=== PATIENT | male | born 1990 | race Caucasian/White ===

== ENCOUNTER 2018-12-19 06:19 | Inpatient (IN) | payer BC ==
--- NOTE | 2018-12-19 06:53 | ED ---
Psych HPI - General Chief Complaint: Psychiatric Symptoms Stated Complaint: mental health Time Seen by Provider: 12/19/18 06:21 Source: patient Mode of arrival: ambulatory - History of Present Illness Initial Comments: 28-year-old male with past medical history of HTN, currently not being treated and family history of bipolar and depression presenting today for chief complaint of anxiety, depression suicidal thoughts and increased anger. Patient states that for as long as he can remember he goes through waves of anger increased emotions for about a month he states it then subsides for a few months ago comes back. He states that he can no longer take this cycle. He states that this time he exploded he punched a wall last night. He states that he this was a result of an argument with his he states it was out of proportion reaction and wants to get help. Patient is tearful during history taking. He states he has not been able to sleep. Patient states he has a few small abrasions of the right hand and some swelling, but "its fine" denies decreased ROM or strength. Patient states that he did have a plan of driving into something to end his life at one point yesterday. Patient states he needs help. Remaining ROS (-) Denies homicidal ideations. - Related Data Allergies Allergy/AdvReac Type Severity Reaction Status Date / Time No Known Allergies Allergy Verified 12/19/18 06:29 Review of Systems ROS Statement: Those systems with pertinent positive or pertinent negative responses have been documented in the HPI. ROS Other: All systems not noted in ROS Statement are negative. Past Medical History Past Medical History: No Reported History History of Any Multi-Drug Resistant Organisms: None Reported Past Surgical History: No Surgical Hx Reported Past Psychological History: Anxiety, Depression Smoking Status: Never smoker Past Alcohol Use History: Occasional Past Drug Use History: None Reported General Exam - General Exam Comments Initial Comments: General: The patient is awake and aler Eye: +3 mm pupils are equal, round and reactive to light, extra-ocular movements are intact. No nystagmus. There is normal conjunctiva bilaterally. No signs of icterus. Ears, nose, mouth and throat: There are moist mucous membranes and no oral lesions. Neck: The neck is supple, there is no tenderness or JVD. Cardiovascular: There is a regular rate and rhythm. No murmur, rub or gallop is appreciated. Respiratory: Lungs are clear to auscultation, respirations are non-labored, breath sounds are equal. No wheezes, stridor, rales, or rhonchi. Gastrointestinal: Soft, non-distended, non-tender abdomen without masses or organomegaly noted. There is no rebound or guarding present. Musculoskeletal: Upon section of the hands bilaterally a few small abrasions near the MTP joint. Of multiple digits. There is soft tissue swelling and mild ecchymosis. Patient is able to fully range the MTP DIP and PIP joints extend and flex at the wrist. No evidence of wrist drop. No limitations in strength or range of motion however patient states there is discomfort. Patient is able to make the okay fingers crossed thumbs up and oppose the small digit of the thumb. Full sensation both proximal distal to injury site Refill less than 3 seconds Radial pulses equal bilaterally 2+. Neurological: A&O x 3. CN II-XII intact grossly, There are no obvious motor or sensory deficits. Coordination appears grossly intact. Speech is normal. Skin: Skin is warm and dry and no rashes or lesions are noted. Psychiatric: Cooperative, tearful, makes appropriate eye contact Course Vital Signs 12/19/18 06:25 Temperature 97.9 F Pulse Rate 85 Respiratory 18 Rate Blood Pressure 152/104 O2 Sat by Pulse 96 Oximetry Medical Decision Making - Medical Decision Making 28yo male presenting for anger, depression, suicidal thoughts. Tearful on exam, cooperative. Punched wall yesterday, xr (-) for fracture of affected site. Neurovascular intact. No limitations in range of motion at the MTP DIP or PIP joints with full strength. Patient is no other complaints. Medically cleared for psychiatric evaluation. EPS recommendation inpatient therapy. Patient signed in voluntarily. Disposition Clinical Impression: Suicidal ideation, Depression Disposition: TRANSFER TO PSYCH HOSP/UNIT Condition: Serious Is patient prescribed a controlled substance at d/c from ED?: No Referrals: None,Stated [Primary Care Provider] - 1-2 days Time of Disposition: 09:59
--- NOTE | 2018-12-19 07:11 | XR ---
EXAMINATION TYPE: XR hand complete RT DATE OF EXAM: 12/19/2018 CLINICAL HISTORY: Right hand pain TECHNIQUE: Frontal, lateral and oblique images of the right hand are obtained. COMPARISON: None. FINDINGS: There is no acute fracture/dislocation evident in the right hand. The joint spaces in the right hand appear within normal limits. The overlying soft tissue appears unremarkable. IMPRESSION: There is no acute fracture or dislocation in the right hand.
[2018-12-19] MEDS ORDERED: MAG HYDROX/AL HYDROX/SIMETH 30 ML CUP PO PRN (14:22)
[2018-12-19] MEDS ORDERED: MAGNESIUM HYDROXIDE 2,400 MG/10 ML CUP PO PRN (14:22)
[2018-12-19] MEDS ORDERED: LORazepam 1 MG TAB PO PRN (14:22)
[2018-12-19] MEDS ORDERED: ACETAMINOPHEN TAB 325 MG TAB PO PRN (14:22)
[2018-12-19] MEDS ORDERED: LORazepam 2 MG/ML INJ IM PRN (14:25)
--- NOTE | 2018-12-19 16:18 | P.HP ---
Psychiatric H&P - . 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 HPI: Patient presented to the hospital with complaints of increasing depression, anger outbursts and most recently a suicidal ideations with a plan to crash his car. Patient states that he has been feeling irritable, sad and hopeless for years now which has been gradually increasing. He states that he suffers from waves of "depression". Patient claims that he feels worried and scared that his can explode on someone and present to the hospital after he punched a wall last night was unprovoked. Patient sustained a significant hand injury however no fracture was determined on x-ray. Patient states that he is worried about his children seeing him like this and wants help. 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 At this time he claims that he does not have specific suicidal ideations intent or plan and does not have any homicidal ideations intent or plan. Denies any auditory or visual hallucinations. Patient denies the use of any other recreational drugs however claims that he does eat an edible of THC twice a week. He claims that his sleep has been poor however has fair appetite. PAST PSYCHIATRIC HISTORY: Denies any previous psychiatric contacts. He denies any previous psych hospitalizations. Denies being on any psychiatric medications in the past. Denies any suicide attempts in the past. PMH: Denies ALLERGIES: [NKDA] CHEMICAL DEPENDENCY HISTORY: Edible of THC 2 times a week. He denies any other recreational drug use including alcohol and nicotine. FAMILY PSYCHIATRIC/SUBSTANCE USE HISTORY: Claims his mother suffered from depression and his father has an unknown mental illness. 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 He completed high school however did not go to college. MENTAL STATUS EXAM: General Appearance: [Patient appears to be stated age is alert, is cooperative and redirectable. Patient has fair hygiene and grooming. Behavior: [Patient is appears to be anxious and irritable. Speech: Patient's speech is fluent and nonpressured. Mood/Affect: Patient reports their mood is sad, affect is congruent and constricted Suicidality/Homicidality: Patient denies having any suicidal or homicidal ideation intent or plan. Perceptions: Patient denies any auditory or visual hallucinations. Though content/process: There is no evidence of any delusional thought content and thought process is linear and goal-directed. Memory and concentration: AOX3, grossly intact for the purposes of this session. Can spell "WORLD" backwards Judgment and insight: Poor STRENGTHS/WEAKNESSES: Supportive family, good insight, resilient. Poor coping skills INTELLECT: average IMPRESSIONS: Depressive disorder unspecified. Cannabis use disorder. PLAN: -Patient is admitted under voluntary status to [facility] for stabilization of psychiatric symptoms and safety. Patient signed for medications and adult voluntary form. Forms placed in chart -Will start patient on trazodone 25 mg daily at bedtime for insomnia and mood. We'll also start sertraline 50 mg daily with 1 dose now for mood and anxiety. Spoke with patient specifically about the side effects of priapism with trazodone, patient is aware and agreed to continue treatment. -Ativan PRN for agitation/aggression -Patient was counselled on substance abuse and desired to cut back on use -Patient was informed of the risks, benefits and side effects of the medication and patient verbally consented to taking the medications. Patient signed med consent form and was placed in chart. -NRT was offered and patient declined this patient does not smoke cigarettes. -SW on board for discharge planning
[2018-12-19] MEDS: SERTRALINE 50 MG TAB PO SCH (16:23)
--- NOTE | 2018-12-19 18:44 | P.MDCNMH ---
History of Present Illness H&P Date: 12/19/18 Chief Complaint: Medical management 28-year-old male with a questionable history of hypertension presents to the ED for depression, anger outbursts and suicidal ideations. [facility] has been consulted for medical management of this patient. Patient reports punching a wall prior to presentation. Patient denies any headache, lower extremity edema, nausea or vomiting, fever or chills, cough, chest pain, shortness of breath, changes in urination or bowel habits. No changes in appetite or weight. Patient denies any dizziness, numbness/weakness/tingling of the extremities. In the ED, patient had elevated BP of 152/104. Review of Systems Pertinent positives and negatives as discussed in HPI, a complete review of systems was performed and all other systems are negative. Past Medical History Past Medical History: No Reported History History of Any Multi-Drug Resistant Organisms: None Reported Past Surgical History: No Surgical Hx Reported Past Anesthesia/Blood Transfusion Reactions: No Reported Reaction Past Psychological History: Anxiety, Depression Smoking Status: Never smoker Past Alcohol Use History: Occasional Past Drug Use History: None Reported Medications and Allergies Home Medications Medication Instructions Recorded Confirmed Type No Known Home Medications 12/19/18 12/19/18 History Allergies Allergy/AdvReac Type Severity Reaction Status Date / Time No Known Allergies Allergy Verified 12/19/18 06:29 Physical Exam Vitals: Vital Signs Temp Pulse Pulse Resp BP BP Pulse Ox 12/19/18 16:33 58 L 18 132/78 98 12/19/18 15:31 98.6 F 78 20 140/87 12/19/18 06:25 97.9 F 85 18 152/104 96 Intake and Output 12/19/18 12/19/18 12/19/18 06:59 14:59 22:59 Other: Weight 83.915 kg General: [non toxic], [no distress], [appears at stated age] Derm: [warm], [dry] Head: [atraumatic], [normocephalic], [symmetric] Eyes: [EOMI], [no lid lag], [anicteric sclera] Mouth: [no lip lesion], [mucus membranes moist] Cardiovascular: [S1S2 reg], [no murmur], [positive posterior tibial pulse bilateral], Lungs: [CTA bilateral], [no rhonchi, no rales] , [no accessory muscle use] Abdominal: [soft], [ nontender to palpation], [no guarding], [no appreciable or ganomegaly] Ext: [no gross muscle atrophy], [no edema], [no contractures] Neuro: [ CN II-XI grossly intact], [no focal neuro deficits] Psych: [Alert], [oriented], [appropriate affect] Cranial Nerve Examination - Cranial Nerves Cranial Nerve II- Optic: Intact Cranial Nerve III- Oculomotor: Intact Cranial Nerve IV- Trochlear: Intact Cranial Nerve V- Trigeminal: Intact Cranial Nerve - Abducens: Intact Cranial Nerve VII- Facial: Intact Cranial Nerve VIII- Auditory: Intact Cranial Nerve IX- Glossopharyngeal: Intact Cranial Nerve X- Vagus: Intact Cranial Nerve XI- Accessory: Intact Cranial Nerve XII- Hypoglossal: Intact Assessment and Plan Assessment: Assessment and Plan Elevated BP with questionable history of hypertension Right hand pain Suicidal ideations BP as high as 152/104. Reports to nurse that he has previously been on antihypertensive medication but denies during H&P. Plans: BP is more within normal limits at this time. Monitor vitals, start medications as necessary. Adequate pain control. X-ray reveals no fracture. Plans: Pain control with Tylenol. Plans: Management as per psychiatry. Please call with any additional questions or concerns.
[2018-12-19] MEDS: traZODone HCL 50 MG TAB PO SCH (21:19)
[2018-12-20 06:35] LABS: Basophils # (A) 0.1 k/uL (0-0.2); Basophils % (A) 1 %; Eosinophils # (A) 0.2 k/uL (0-0.7); Eosinophils % (A) 5 %; HCT 49.8 % (39.0-53.0); HGB 16.6 gm/dL (13.0-17.5); Lymphocytes # (A) 1.5 k/uL (1.0-4.8); Lymphocytes % (A) 31 %; MCH 30.4 pg (25.0-35.0); MCHC 33.4 g/dL (31.0-37.0); Mean Platelet Volume 8.1; Monocytes # (A) 0.4 k/uL (0-1.0); Monocytes % (A) 9 %; Neutrophils # (A) 2.5 k/uL (1.3-7.7); Neutrophils % (A) 52 %; Platelet Count 234 k/uL (150-450); RBC 5.47 m/uL (4.30-5.90); RDW 15.3 % (11.5-15.5); WBC 4.9 k/uL (3.8-10.6)
[2018-12-20 06:46] LABS: ALT 23 U/L (21-72); AST 23 U/L (17-59); African American GFR (CKD) >90 (>60 ml/min/1.73 sqM); Albumin 4.7 g/dL (3.5-5.0); Alkaline Phosphatase 58 U/L (38-126); Anion Gap 10 mmol/L; Blood Urea Nitrogen 15 mg/dL (9-20); Calcium 9.7 mg/dL (8.4-10.2); Carbon Dioxide 28 mmol/L (22-30); Chloride 101 mmol/L (98-107); Glucose 82 mg/dL (74-99); Non-African American GFR(CKD) >90 (>60 ml/min/1.73 sqM); Potassium 4.5 mmol/L (3.5-5.1); Sodium 139 mmol/L (137-145); Total Bilirubin 1.8 mg/dL (0.2-1.3); Total Protein 7.6 g/dL (6.3-8.2)
[2018-12-20] MEDS: SERTRALINE 50 MG TAB PO SCH (09:24)
--- NOTE | 2018-12-20 14:16 | P.PN ---
Progress Note - Text Progress Note Date: 12/20/18 Interval history: Patient is seen in cross coverage today. He has been started on Zoloft and trazodone. He slept well last night with the trazodone. He states he did wake up somebody is able to fall back asleep. He felt a little carryover in the morning. He seems to be tolerating the Zoloft fine. He talks about circumstances leading up to his admission. He gives a history of recurrent depression as well as some symptoms of anxiety. Mental status exam: He is alert and cooperative with the interview. His speech is fluent, not rapid or pressured. Thought processes organized. His mood does seem to be improved today. He does not verbalize any thoughts of harm to self or others. No evidence of psychosis or agitation. Plan: Patient will be maintained on current psychotropic medication regimen. Continue to monitor for any medication side effects and monitor his ongoing response to treatment. We talked about learning and use of coping skills and benefits of exercise.
[2018-12-20 15:00] VITALS: BMI 29.8
[2018-12-20] MEDS: traZODone HCL 50 MG TAB PO SCH (21:54)
[2018-12-21 07:13] VITALS: BP 129/72; PULSE 68; RESP 18; TEMP 98
[2018-12-21] MEDS: SERTRALINE 50 MG TAB PO SCH (08:54)
--- NOTE | 2018-12-21 15:08 | P.PN ---
Progress Note - Text Progress Note Date: 12/21/18 Interval history: Patient is seen in cross coverage again today. He states that he feeling much better. He seems to be tolerating the psychotropic medications fine. He had a visit from his last night which went very well. He is motivated for outpatient treatment. He feels the hospitalization is been a very positive experience. He has been attending groups. He talks on making some positive adjustments to help his stress level and has talked with a friend who he is planning on exercising with. Mental status exam: He is alert and cooperative with the interview. His speech is fluent, not rapid or pressured. Thought processes organized. His mood is improved. He denies any thoughts of harm to self. He does not show any evidence of psychosis or agitation. Plan: Patient will be maintained on current psychotropic medication regimen. Continue to monitor for any medication side effects and monitor his ongoing response to treatment.
[2018-12-21] MEDS: traZODone HCL 50 MG TAB PO SCH (21:25)
[2018-12-22 08:17] LABS: Appearance,Urine Clear (Clear); Bacteria,Urine Rare /hpf; Bilirubin,Urine Negative (Negative); Blood,Urine Negative (Negative); Color,Urine Yellow; Glucose,Urine (UA) Negative (Negative); Hyaline Casts,Urine 7 /lpf (0-2); Ketones,Urine Trace (Negative); Leukocyte Esterase,Urine Negative (Negative); Mucus,Urine Many /hpf; Nitrite,Urine Negative (Negative); Protein,Urine 1+ (Negative); RBC,Urine 3 /hpf (0-5); Specific Gravity,Urine 1.034 (1.001-1.035); WBC,Urine 1 /hpf (0-5)
[2018-12-22 08:21] LABS: Amphetamine Screen,Urine Not Detected (NotDetected); Barbiturate Screen,Urine Not Detected (NotDetected); Benzodiazepines Screen,Urine Not Detected (NotDetected); Cocaine Screen,Urine Not Detected (NotDetected); Methadone Screen, Urine Not Detected (NotDetected); Opiate Screen,Urine Not Detected (NotDetected); Oxycodone Screen, Urine Not Detected (NotDetected); Phencyclidine Screen,Urine Not Detected (NotDetected); Tricyclic Antidepressant,Urine Not Detected (NotDetected); Urn Cannabinoid Scrn Detected (NotDetected)
[2018-12-22] MEDS: SERTRALINE 50 MG TAB PO SCH (09:28)
--- NOTE | 2018-12-22 14:15 | P.DS ---
Providers Date of admission: 12/19/18 14:21 Expected date of discharge: 12/22/18 Attending physician: Jordan Carrillo MD Consults: 12/19/18 14:22 Consult Physician Routine Consulting Provider: Andi Hernandez Consult Reason/Comments: H and P Do you want consulting provider notified?: Yes Primary care physician: Stated None - Discharge Diagnosis(es) (1) Major depressive disorder with single episode Current Visit: Yes Status: Acute Priority: High (2) Cannabis abuse Current Visit: Yes Status: Acute Priority: Medium Hospital Course: Summary of admission note: Patient is a 28-year-old male is currently and living in a house with 2 kids ages 5 and 7 and 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 He presented to the hospital with complaints of increasing depression, anger outbursts and most recently a suicidal ideations with a plan to crash his car. Patient states that he has been feeling irritable, sad and hopeless for years now which has been gradually increasing. He states that he suffers from waves of "depression". Patient claims that he feels worried and scared that his can explode on someone and present to the hospital after he punched a wall last night was unprovoked. Patient sustained a significant hand injury however no fracture was determined on x-ray. Patient states that he is worried about his children seeing him like this and wants help. 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 At this time he claims that he does not have specific suicidal ideations intent or plan and does not have any homicidal ideations intent or plan. Denies any auditory or visual hallucinations. Patient denies the use of any other recreational drugs however claims that he does eat an edible of THC twice a week. He claims that his sleep has been poor however has fair appetite. Hospital course: Upon admission to the unit patient was initially irritable and sad, anxious however was cooperative and directable. Patient got along well with other patients on the unit and followed unit protocol. Patient was compliant with his medications and denied any side effects throughout his hospital course. Patient was started on trazodone 25 mg daily at bedtime for mood and insomnia, Zoloft 50 mg daily for mood and anxiety. Patient spoke of his stressors and engaged in therapy both group and individual. Patient was also seen by medical team for history and physical exam. Patient did have a UA which was positive for protein and ketones. As per [facility], they attributed the protein and ketones to dehydration and possible elevation in blood pressure. [facility] also recommended patient follow-up with his primary care provider for further management. Throughout the course of the hospitalization patient gradually improved with regards to mood and became future oriented. On the day of discharge patient denied any suicidal or homicidal ideations intent or plan denied any auditory or visual hallucinations. Patient claims that he is sleeping much better and has a good appetite and a positive outlook on the future. Patient denied any paranoia and did not endorse any delusions. She has a significant history for cannabis use, patient was counseled on substance use and its effect on his mental and physical health and offer treatment however patient declined at this time. [Patient was also counseled on the medications and need for regular compliance and was encouraged to follow-up with their outpatient appointment for mental health and also for primary care.] Mental status exam: General Appearance: [Patient appears to be stated age is alert, pleasant, and cooperative. Patient is in no acute distress and has fair hygiene and grooming] Behavior: [Patient is calmly seated without any agitated behavior.] Speech: Patient's speech is fluent and nonpressured. Mood/Affect: Patient reports their mood is fine, affect is congruent and euthym ic. Suicidality/Homicidality: Patient denies having any suicidal or homicidal ideation intent or plan. Perceptions: Patient denies any auditory or visual hallucinations. Though content/process: There is no evidence of any delusional thought content and thought process is linear and goal-directed. Memory and concentration: AOX3, grossly intact for the purposes of this session. Can spell "WORLD" backwards correctly. Judgment and insight: fair, improved Impression: Major depressive disorder, single episode Cannabis use disorder. Plan: -Continue with discharge today as patient has improved and stabilized psychiatrically and no longer remains an imminent threat to [himself] and/or others. -Continue medications: Trazodone 25 mg for insomnia and mood. Zoloft 50 mg for mood/anxiety. Patient was informed in great detail about the side effects of both trazodone and Zoloft specifically including priapism and the need for urgent medical attention if this does occur. Patient verbally understood and agreed. -Patient was counseled on the need for medication compliance and appropriate follow-up at mental health and also primary care for medical issues. Patient verbalized understanding and agreed. -Social work did have a family meeting with patient and his for clarification of treatment and to address any concerns prior to discharge. -Patient counseled on abstaining from recreational drugs and marijuana and alcohol. Patient was educated on the risks to his physical and mental health by substances. -Patient was instructed to return to the hospital or seek immediate medical care if their psychiatric or medical systems do worsen or reoccur. -Patient set to follow-up with [facility] for outpatient mental health services including counselor and psychiatry Allergies Allergy/AdvReac Type Severity Reaction Status Date / Time No Known Allergies Allergy Verified 12/19/18 06:29 Laboratory Results WBC 4.9 k/uL (3.8-10.6) 12/20/18 06:02 RBC 5.47 m/uL (4.30-5.90) 12/20/18 06:02 Hgb 16.6 gm/dL (13.0-17.5) 12/20/18 06:02 Hct 49.8 % (39.0-53.0) 12/20/18 06:02 MCV 91.0 fL (80.0-100.0) 12/20/18 06:02 MCH 30.4 pg (25.0-35.0) 12/20/18 06:02 MCHC 33.4 g/dL (31.0-37.0) 12/20/18 06:02 RDW 15.3 % (11.5-15.5) 12/20/18 06:02 Plt Count 234 k/uL (150-450) 12/20/18 06:02 Neutrophils % 52 % 12/20/18 06:02 Lymphocytes % 31 % 12/20/18 06:02 Monocytes % 9 % 12/20/18 06:02 Eosinophils % 5 % 12/20/18 06:02 Basophils % 1 % 12/20/18 06:02 Neutrophils # 2.5 k/uL (1.3-7.7) 12/20/18 06:02 Lymphocytes # 1.5 k/uL (1.0-4.8) 12/20/18 06:02 Monocytes # 0.4 k/uL (0-1.0) 12/20/18 06:02 Eosinophils # 0.2 k/uL (0-0.7) 12/20/18 06:02 Basophils # 0.1 k/uL (0-0.2) 12/20/18 06:02 Sodium 139 mmol/L (137-145) 12/20/18 06:02 Potassium 4.5 mmol/L (3.5-5.1) 12/20/18 06:02 Chloride 101 mmol/L (98-107) 12/20/18 06:02 Carbon Dioxide 28 mmol/L (22-30) 12/20/18 06:02 Anion Gap 10 mmol/L 12/20/18 06:02 BUN 15 mg/dL (9-20) 12/20/18 06:02 Creatinine 0.93 mg/dL (0.66-1.25) 12/20/18 06:02 Est GFR (CKD-EPI)AfAm >90 (>60 ml/min/1.73 sqM) 12/20/18 06:02 Est GFR (CKD-EPI)NonAf >90 (>60 ml/min/1.73 sqM) 12/20/18 06:02 Glucose 82 mg/dL (74-99) 12/20/18 06:02 Calcium 9.7 mg/dL (8.4-10.2) 12/20/18 06:02 Total Bilirubin 1.8 mg/dL (0.2-1.3) H 12/20/18 06:02 AST 23 U/L (17-59) 12/20/18 06:02 ALT 23 U/L (21-72) 12/20/18 06:02 Alkaline Phosphatase 58 U/L (38-126) 12/20/18 06:02 Total Protein 7.6 g/dL (6.3-8.2) 12/20/18 06:02 Albumin 4.7 g/dL (3.5-5.0) 12/20/18 06:02 TSH 0.799 mIU/L (0.465-4.680) 12/20/18 06:02 Urine Color Yellow 12/22/18 07:55 Urine Appearance Clear (Clear) 12/22/18 07:55 Urine pH 6.0 (5.0-8.0) 12/22/18 07:55 Ur Specific [place] 1.034 (1.001-1.035) 12/22/18 07:55 Urine Protein 1+ (Negative) H 12/22/18 07:55 Urine Glucose (UA) Negative (Negative) 12/22/18 07:55 Urine Ketones Trace (Negative) H 12/22/18 07:55 Urine Blood Negative (Negative) 12/22/18 07:55 Urine Nitrite Negative (Negative) 12/22/18 07:55 Urine Bilirubin Negative (Negative) 12/22/18 07:55 Urine Urobilinogen 2.0 mg/dL (<2.0) 12/22/18 07:55 Ur Leukocyte Esterase Negative (Negative) 12/22/18 07:55 Urine RBC 3 /hpf (0-5) 12/22/18 07:55 Urine WBC 1 /hpf (0-5) 12/22/18 07:55 Urine Bacteria Rare /hpf (None) H 12/22/18 07:55 Hyaline Casts 7 /lpf (0-2) H 12/22/18 07:55 Urine Mucus Many /hpf (None) H 12/22/18 07:55 Urine Opiates Screen Not Detected (NotDetected) 12/22/18 07:55 Ur Oxycodone Screen Not Detected (NotDetected) 12/22/18 07:55 Urine Methadone Screen Not Detected (NotDetected) 12/22/18 07:55 Ur Propoxyphene Screen Not Detected (NotDetected) 12/22/18 07:55 Ur Barbiturates Screen Not Detected (NotDetected) 12/22/18 07:55 U Tricyclic Antidepress Not Detected (NotDetected) 12/22/18 07:55 Ur Phencyclidine Scrn Not Detected (NotDetected) 12/22/18 07:55 Ur Amphetamines Screen Not Detected (NotDetected) 12/22/18 07:55 U Methamphetamines Scrn Not Detected (NotDetected) 12/22/18 07:55 U Benzodiazepines Scrn Not Detected (NotDetected) 12/22/18 07:55 Urine Cocaine Screen Not Detected (NotDetected) 12/22/18 07:55 U Marijuana (THC) Screen Detected (NotDetected) H 12/22/18 07:55 Vital Signs Temp 98.0 F 12/21/18 07:12 Pulse 68 12/21/18 07:12 Resp 18 12/21/18 07:12 BP 129/72 12/21/18 07:12 Pulse Ox 98 12/19/18 16:33 Intake & Output 12/21/18 12/22/18 12/22/18 18:59 06:59 18:59 Weight 81.4 kg Patient Condition at Discharge: Stable Plan - Discharge Summary Discharge Rx Participant: No New Discharge Prescriptions: New traZODone HCL [Desyrel] 25 mg PO HS #15 tab Sertraline [Zoloft] 50 mg PO DAILY #30 tab Discharge Medication List Sertraline [Zoloft] 50 mg PO DAILY #30 tab 12/22/18 [Rx] traZODone HCL [Desyrel] 25 mg PO HS #15 tab 12/22/18 [Rx] Follow up Appointment(s)/Referral(s): [facility] [Outside] - 12/25/18 11:15 am (Andres Devine Please ariive 15 minutes early with paperwork, id and insurance cartd) [facility] - [facility] Week Patient Instructions/Handouts: Depression (DC), Suicide Prevention (DC) Activity/Diet/Wound Care/Special Instructions: Activity and diet as tolerated. Avoid the use of street drugs and alcohol. Take all medications as prescribed. When you are in need of refills on your medications please contact your medical provider and/or outpatient psychiatrist to have this done. Please go to scheduled outpatient appointment for aftercare. If symptoms return or become worse call the crisis line at and/or go to the nearest emergency room for an evaluation. Follow up with PCP regarding Protein in urine and elevated B/P Discharge Disposition: HOME SELF-CARE
== END 2018-12-22 15:44 | disposition home or self-care (01) | DRG 881 ==
LOC: EC 06:19 → 3MHU 14:21
PROVIDERS: ADMIT Psychiatry & Neurology Psychiatry; ATTEND Psychiatry & Neurology Psychiatry
DX: F32.9 Major depressive disorder, single episode, unspecified (principal); F12.10 Cannabis abuse, uncomplicated; F41.9 Anxiety disorder, unspecified; G47.00 Insomnia, unspecified; Z79.899 Other long term (current) drug therapy; Z81.8 Family history of other mental and behavioral disorders
CPT/HCPCS: 80053; 80306; 81001; 82075; 84443; 85025; 99285

== ENCOUNTER 2020-01-05 14:21 | Emergency (ER) | payer BC ==
[2020-01-05 14:27] VITALS: TEMP 98.6
--- NOTE | 2020-01-05 15:10 | XR ---
EXAMINATION TYPE: XR chest 2V DATE OF EXAM: 01/05/2020 COMPARISON: 07/31/2015 HISTORY: Chest pain TECHNIQUE: Frontal and lateral views of the chest are obtained. FINDINGS: There is no focal air space opacity. No evidence for pneumothorax. No pleural effusion. The cardiac silhouette size is within normal limits. The osseous structures are grossly intact. IMPRESSION: 1. No acute cardiopulmonary process.
[2020-01-05 15:23] LABS: Basophils % (A) 1 %; Eosinophils # (A) 0.1 k/uL (0-0.7); Eosinophils % (A) 3 %; HCT 42.6 % (39.0-53.0); HGB 14.1 gm/dL (13.0-17.5); Lymphocytes # (A) 1.5 k/uL (1.0-4.8); Lymphocytes % (A) 27 %; MCH 29.6 pg (25.0-35.0); MCHC 33.2 g/dL (31.0-37.0); MCV 89.3 fL (80.0-100.0); Monocytes # (A) 0.4 k/uL (0-1.0); Monocytes % (A) 7 %; Neutrophils # (A) 3.3 k/uL (1.3-7.7); Neutrophils % (A) 60 %; Platelet Count 225 k/uL (150-450); RBC 4.77 m/uL (4.30-5.90); RDW 12.4 % (11.5-15.5); WBC 5.4 k/uL (3.8-10.6)
--- NOTE | 2020-01-05 15:29 | ED ---
Chest Pain HPI - General Chief Complaint: Chest Pain Stated Complaint: Chest Pain Source: patient Mode of arrival: wheelchair Limitations: no limitations - History of Present Illness Initial Comments: Patient is a 29-year-old male with no past medical history presents emergency department with reported chest pain. Patient states it started last night. He describes it as a pressure on his chest that has been waxing and waning since last night. He denies any sharp shooting pains. No ripping or tearing sensation to his back. Denies any associated nausea, vomiting or diaphoresis. Did admit to some flushing just prior to coming into the emergency room. Denies history of cardiac disease. No history of drug use. No fevers or chills. Denies cough. No underlying lung issues. No family history of sudden cardiac . Denies any unilateral numbness or weakness. Denies any shortness of breath. No lower externally edema. No calf pain or swelling. 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 ROS Other: All systems not noted in ROS Statement are negative. EKG Findings - EKG Comments: EKG Findings:: EKG demonstrates a normal sinus rhythm with a ventricular rate of 64. CO interval 130. QRS 86. QTC of 412. No acute ST segment elevations or depressions concerning for ischemic changes. No signs of Sbysa-Bxqengwdz-Liyjd or Brugada Past Medical History Past Medical History: No Reported History History of Any Multi-Drug Resistant Organisms: None Reported Past Surgical History: No Surgical Hx Reported Past Anesthesia/Blood Transfusion Reactions: No Reported Reaction Past Psychological History: Anxiety, Depression Smoking Status: Never smoker Past Alcohol Use History: Occasional Past Drug Use History: None Reported General Exam Limitations: no limitations General appearance: alert, in no apparent distress Head exam: Present: atraumatic, normocephalic, normal inspection Eye exam: Present: normal appearance, PERRL, EOMI. Absent: scleral icterus, conjunctival injection, periorbital swelling ENT exam: Present: normal exam, mucous membranes moist Neck exam: Present: normal inspection. Absent: tenderness, meningismus, lymphadenopathy Respiratory exam: Present: normal lung sounds bilaterally. Absent: respiratory distress, wheezes, rales, rhonchi, stridor Cardiovascular Exam: Present: regular rate, normal rhythm, normal heart sounds. Absent: systolic murmur, diastolic murmur, rubs, gallop, clicks GI/Abdominal exam: Present: soft, normal bowel sounds. Absent: distended, tenderness, guarding, rebound, rigid Extremities exam: Present: normal inspection, full ROM, normal capillary refill. Absent: tenderness, pedal edema, joint swelling, calf tenderness Back exam: Present: normal inspection Neurological exam: Present: alert, oriented X3, CN II-XII intact Psychiatric exam: Present: normal affect, normal mood Skin exam: Present: warm, dry, intact, normal color. Absent: rash Course Vital Signs 01/05/20 14:25 Temperature 98.6 F Pulse Rate 74 Respiratory 18 Rate Blood Pressure 162/106 O2 Sat by Pulse 99 Oximetry Chest Pain MDM - MDM Upon arrival the patient is placed into room 2. A thorough history and physical exam is performed. Patient is hooked up to continuous pulse ox and cardiac monitoring. 12-lead EKG is performed. Laboratory studies are conducted in the patient will for chest x-ray. Laboratory studies are unremarkable. Troponin negative. D-dimer negative. Chest x-ray demonstrates no acute cardio primary process. I discussed the diagnosis, differential and treatment options. Patient will be discharged home at this time and is to follow-up with his primary care physician for further evaluation. He recommended Holter monitoring and echo. Patient understood this. Return to the emergency room for any new or worsening symptoms. Patient was in agreement with plan and discharged home in stable condition Disposition Clinical Impression: Chest pain Disposition: HOME SELF-CARE Condition: Stable Instructions (If sedation given, give patient instructions): Chest Pain (ED) Additional Instructions: I recommend follow-up with your primary care physician in regards your symptoms. I recommend Holter monitoring and echo. Return to the emergency room for any new or worsening symptoms Is patient prescribed a controlled substance at d/c from ED?: No Referrals: None,Stated [Primary Care Provider] - 1-2 days Davide Gore [STAFF PHYSICIAN] - 1-2 days Time of Disposition: 16:12
[2020-01-05 15:31] LABS: ALT 17 U/L (4-49); AST 26 U/L (17-59); African American GFR (CKD) >90 (>60 ml/min/1.73 sqM); Albumin 4.3 g/dL (3.5-5.0); Alkaline Phosphatase 54 U/L (38-126); Anion Gap 6 mmol/L; Blood Urea Nitrogen 12 mg/dL (9-20); Calcium 9.3 mg/dL (8.4-10.2); Carbon Dioxide 28 mmol/L (22-30); Chloride 103 mmol/L (98-107); Glucose 93 mg/dL (74-99); Magnesium 2.1 mg/dL (1.6-2.3); Non-African American GFR(CKD) >90 (>60 ml/min/1.73 sqM); Sodium 137 mmol/L (137-145); Total Bilirubin 0.7 mg/dL (0.2-1.3); Total Protein 6.7 g/dL (6.3-8.2)
[2020-01-05 15:53] LABS: D-Dimer <0.17 mg/L FEU (<0.60); INR 0.9 (<1.2); Partial Thromboplastin Time 23.6 sec (22.0-30.0); Prothrombin Time 9.9 sec (9.0-12.0)
[2020-01-05 16:28] VITALS: BP 130/87; PULSE 61; RESP 16
== END 2020-01-05 16:29 | disposition home or self-care (01) ==
LOC: EC 14:21
DX: R07.9 Chest pain, unspecified (principal)
CPT/HCPCS: 36415; 71046; 80053; 83735; 84484; 85025; 85379; 85610; 85730; 93005; 99285

== ENCOUNTER 2021-06-20 18:19 | Inpatient (IN) | payer BC ==
--- NOTE | 2021-06-20 20:13 | ED ---
General Adult HPI - General Chief complaint: Psychiatric Symptoms Stated complaint: [employer] Order Time Seen by Provider: 06/20/21 19:01 Source: patient Mode of arrival: ambulatory Limitations: no limitations - History of Present Illness Initial comments: This 31-year-old male presents to the emergency department stating he is being petitioned by his for his medications being messed up. Patient states "I feel fucking great." Patient denies any chest pain, shortness of breath, abdominal pain, change in bowel or bladder, change in vision, headache, nausea, dizzy. Patient's states he was diagnosed with bipolar 3 years ago and over the last 2 days has been saying that he hates his children and wants to shoot himself in the head. also states the patient has been cheating on her with a different women. - Related Data Home Medications Medication Instructions Recorded Confirmed Cariprazine HCl [Vraylar] 1.5 mg PO DAILY 06/20/21 06/20/21 buPROPion HCL [Wellbutrin SR] 100 mg PO DIRECTED 06/20/21 06/20/21 Allergies Allergy/AdvReac Type Severity Reaction Status Date / Time No Known Allergies Allergy Verified 06/20/21 21:28 Review of Systems ROS Statement: Those systems with pertinent positive or pertinent negative responses have been documented in the HPI. ROS Other: All systems not noted in ROS Statement are negative. Past Medical History Past Medical History: No Reported History History of Any Multi-Drug Resistant Organisms: None Reported Past Surgical History: No Surgical Hx Reported Past Anesthesia/Blood Transfusion Reactions: No Reported Reaction Past Psychological History: Anxiety, Depression Smoking Status: Never smoker Past Alcohol Use History: Occasional Past Drug Use History: None Reported General Exam Limitations: no limitations General appearance: alert, in no apparent distress Head exam: Present: atraumatic, normocephalic, normal inspection Eye exam: Present: PERRL, EOMI Pupils: Present: normal accommodation ENT exam: Present: mucous membranes moist Neck exam: Present: normal inspection, full ROM. Absent: tenderness, meningismus Respiratory exam: Present: normal lung sounds bilaterally. Absent: respiratory distress, wheezes, rales, rhonchi, stridor Cardiovascular Exam: Present: regular rate, normal rhythm, normal heart sounds. Absent: systolic murmur, diastolic murmur, rubs, gallop, clicks GI/Abdominal exam: Present: soft, normal bowel sounds. Absent: distended, tenderness, guarding, rebound, rigid Extremities exam: Present: full ROM Back exam: Absent: tenderness, CVA tenderness (R), CVA tenderness (L), paraspinal tenderness, vertebral tenderness Neurological exam: Present: alert, oriented X3, CN II-XII intact Psychiatric exam: Present: normal affect, normal mood Skin exam: Present: warm, dry, intact, normal color. Absent: rash Course Vital Signs 06/20/21 06/20/21 18:24 22:00 Temperature 97.3 F L Pulse Rate 87 77 Respiratory 16 18 Rate Blood Pressure 185/107 177/93 O2 Sat by Pulse 95 97 Oximetry Medical Decision Making - Medical Decision Making This 31-year-old male with past medical history of bipolar disorder presents emergency Department being petitioned by his . Patient currently denies any suicidal or homicidal ideation. Was assessed by EPS nurse who stated patient would be admitted to the psychiatric unit to be evaluated in the morning. Patient did sign an on his own for psychiatric evaluation. Patient verbally agreed to the plan to be assessed in the morning. Patient admitted to the psychiatric floor. - Lab Data Lab Results 06/20/21 06/20/21 Range/Units 20:24 22:20 Urine Opiates Screen Not Detected (NotDetected) Ur Oxycodone Screen Not Detected (NotDetected) Urine Methadone Screen Not Detected (NotDetected) Ur Propoxyphene Screen Not Detected (NotDetected) Ur Barbiturates Screen Not Detected (NotDetected) U Tricyclic Antidepress Not Detected (NotDetected) Ur Phencyclidine Scrn Not Detected (NotDetected) Ur Amphetamines Screen Not Detected (NotDetected) U Methamphetamines Scrn Not Detected (NotDetected) U Benzodiazepines Scrn Not Detected (NotDetected) Urine Cocaine Screen Not Detected (NotDetected) U Marijuana (THC) Screen Detected H (NotDetected) Coronavirus (PCR) Not Detected (Not Detectd) Disposition Clinical Impression: Bipolar disorder Disposition: ADMITTED IP TO THIS [facility] Condition: Stable Is patient prescribed a controlled substance at d/c from ED?: No Referrals: None,Stated [Primary Care Provider] - 1-2 days Time of Disposition: 22:24
[2021-06-20 21:20] LABS: Amphetamine Screen,Urine Not Detected (NotDetected); Barbiturate Screen,Urine Not Detected (NotDetected); Benzodiazepines Screen,Urine Not Detected (NotDetected); Cocaine Screen,Urine Not Detected (NotDetected); Methadone Screen, Urine Not Detected (NotDetected); Opiate Screen,Urine Not Detected (NotDetected); Oxycodone Screen, Urine Not Detected (NotDetected); Phencyclidine Screen,Urine Not Detected (NotDetected); Tricyclic Antidepressant,Urine Not Detected (NotDetected); Urn Cannabinoid Scrn Detected (NotDetected)
[2021-06-21] MEDS ORDERED: HALOPERIDOL LACTATE 5 MG/ML 1 ML VIAL IM PRN (01:28)
[2021-06-21] MEDS ORDERED: MAG HYDROX/AL HYDROX/SIMETH 30 ML CUP PO PRN (01:28)
[2021-06-21] MEDS ORDERED: ACETAMINOPHEN TAB 325 MG TAB PO PRN (01:28)
[2021-06-21] MEDS ORDERED: LORazepam 1 MG TAB PO PRN (01:28)
[2021-06-21] MEDS ORDERED: MAGNESIUM HYDROXIDE 2,400 MG/10 ML CUP PO PRN (01:28)
[2021-06-21] MEDS ORDERED: LORazepam 2 MG/ML INJ IM PRN (01:31)
[2021-06-21] MEDS ORDERED: haloperidoL 5 MG TAB PO PRN (01:32)
[2021-06-21 02:03] LABS: Appearance,Urine Clear (Clear); Bilirubin,Urine Negative (Negative); Blood,Urine Negative (Negative); Color,Urine Light Yellow; Glucose,Urine (UA) Negative (Negative); Ketones,Urine Negative (Negative); Leukocyte Esterase,Urine Negative (Negative); Nitrite,Urine Negative (Negative); PH, Urine 6.5 (5.0-8.0); Protein,Urine Negative (Negative); Specific Gravity,Urine 1.004 (1.001-1.035); Urobilinogen,Urine <2.0 mg/dL (<2.0)
--- NOTE | 2021-06-21 03:09 | P.MDCNMH ---
History of Present Illness H&P Date: 06/21/21 Chief Complaint: Medical evaluation 31-year-old male with bipolar disorder Patient was petitioned by his complaining that he was missing of his medications and cheating on her and hates his life and children. Patient denies any suicidal or homicidal ideation he feels frustrated for being here he denies these accusations. He otherwise denies any medical or physical concerns at this time denies any fevers chills nausea vomiting abdominal pain chest pain trouble breathing and coughing diarrhea or urinary changes. Patient denies tobacco smoking, recreational drugs or heavy alcohol use Review of Systems Pertinent positives as noted in HPI. All other systems were reviewed and are negative Past Medical History Past Medical History: No Reported History History of Any Multi-Drug Resistant Organisms: None Reported Past Surgical History: No Surgical Hx Reported Past Anesthesia/Blood Transfusion Reactions: No Reported Reaction Past Psychological History: Anxiety, Depression Smoking Status: Never smoker Past Alcohol Use History: Occasional Past Drug Use History: Marijuana Additional Drug Use History / Comment(s): Pt states he uses marijuana "regularly." Last used 06/19/2021 - Past Family History Family Family Medical History: Hypertension Medications and Allergies Home Medications Medication Instructions Recorded Confirmed Type Cariprazine HCl [Vraylar] 1.5 mg PO DAILY 06/20/21 06/21/21 History buPROPion HCL [Wellbutrin SR] 100 mg PO DIRECTED 06/20/21 06/21/21 History Allergies Allergy/AdvReac Type Severity Reaction Status Date / Time No Known Allergies Allergy Verified 06/21/21 01:35 Physical Exam Vitals: Vital Signs Temp Pulse Pulse Resp BP BP Pulse Ox 06/21/21 00:33 97.7 F 77 15 143/96 97 06/21/21 00:29 84 18 134/87 96 06/20/21 22:00 77 18 177/93 97 06/20/21 18:24 97.3 F L 87 16 185/107 95 Intake and Output 06/20/21 06/20/21 06/21/21 14:59 22:59 06:59 Other: Weight 81.193 kg 80.031 kg Constitutional: No acute distress, conversant, pleasant Eyes: Anicteric sclerae, moist conjunctiva, Pupils equal round reactive to light ENMT: NC/AT Oropharynx clear, no erythema, or exudates Neck: Supple, FROM, no masses, or JVD No carotid bruits No thyromegaly Lungs: Clear to auscultation Clear to percussion Normal respiratory effort, no accessory muscle use Cardiovascular: Heart regular in rate and rhythm, No murmurs, gallops, or rubs No peripheral edema Abdominal: Soft Nontender, no guarding, rebound or rigidity Abdomen moving with respiration Normoactive bowel sounds No hepatomegaly, No splenomegaly No palpable mass No abdominal wall hernia noted Skin: Normal temperature, tone, texture, turgor No induration No subcutaneous nodules No rash, lesions No ulcers Extremities: No digital cyanosis No clubbing Pedal pulses intact and symmetrical Radial pulses intact and symmetrical No calf tenderness Psychiatric: Alert and oriented to person, place and time Appropriate affect fair judgement Neuro Muscles Strength 5/5 in all 4 extremities Sensation to light touch grossly present throughout Cranial nerves II-XII grossly intact No focal sensory deficits Lymphatics: no palpable cervical or supraclavicular , or inguinal lymph nodes Cranial Nerve Examination - Cranial Nerves Cranial Nerve II- Optic: Intact Cranial Nerve III- Oculomotor: Intact Cranial Nerve IV- Trochlear: Intact Cranial Nerve V- Trigeminal: Intact Cranial Nerve - Abducens: Intact Cranial Nerve VII- Facial: Intact Cranial Nerve VIII- Auditory: Intact Cranial Nerve IX- Glossopharyngeal: Intact Cranial Nerve X- Vagus: Intact Cranial Nerve XI- Accessory: Intact Cranial Nerve XII- Hypoglossal: Intact Results Labs: Abnormal Lab Results - Last 24 Hours (Table) 06/20/21 Range/Units 20:24 U Marijuana (THC) Screen Detected H (NotDetected) Assessment and Plan Assessment: Bipolar disorder Possible medication noncompliance Management per psych No medical issues at this time Follow-up labs Thank you for allowing us to participate in the care of this patient. We will follow peripherally. Do not hesitate to contact us with questions. Someone can be reached from the [facility] hospitalist group at all hours of the day at [phone].
[2021-06-21 08:54] VITALS: BP 144/79; PULSE 89; RESP 12; TEMP 97.3
[2021-06-21] MEDS ORDERED: NON FORMULARY DRUG (Cariprazine Hcl [Vraylar] 1.5 MG Capsule) PO SCH (09:00)
--- NOTE | 2021-06-21 13:15 | P.HP ---
Psychiatric H&P - . H&P Date: 06/21/21 History & Physical: Allergies Allergy/AdvReac Type Severity Reaction Status Date / Time No Known Allergies Allergy Verified 06/21/21 01:35 Vital Signs Temp 97.3 F L 06/21/21 08:53 Pulse 89 06/21/21 08:53 Resp 12 06/21/21 08:53 BP 144/79 06/21/21 08:53 Pulse Ox 99 06/21/21 08:53 Intake & Output 06/20/21 06/21/21 06/21/21 18:59 06:59 18:59 Weight 81.193 kg 80.031 kg Laboratory Last Values Urine Color Light Yellow 06/21/21 00:00 Urine Appearance Clear (Clear) 06/21/21 00:00 Urine pH 6.5 (5.0-8.0) 06/21/21 00:00 Ur Specific Sunflower 1.004 (1.001-1.035) 06/21/21 00:00 Urine Protein Negative (Negative) 06/21/21 00:00 Urine Glucose (UA) Negative (Negative) 06/21/21 00:00 Urine Ketones Negative (Negative) 06/21/21 00:00 Urine Blood Negative (Negative) 06/21/21 00:00 Urine Nitrite Negative (Negative) 06/21/21 00:00 Urine Bilirubin Negative (Negative) 06/21/21 00:00 Urine Urobilinogen <2.0 mg/dL (<2.0) 06/21/21 00:00 Ur Leukocyte Esterase Negative (Negative) 06/21/21 00:00 Urine Opiates Screen Not Detected (NotDetected) 06/20/21 20:24 Ur Oxycodone Screen Not Detected (NotDetected) 06/20/21 20:24 Urine Methadone Screen Not Detected (NotDetected) 06/20/21 20:24 Ur Propoxyphene Screen Not Detected (NotDetected) 06/20/21 20:24 Ur Barbiturates Screen Not Detected (NotDetected) 06/20/21 20:24 U Tricyclic Antidepress Not Detected (NotDetected) 06/20/21 20:24 Ur Phencyclidine Scrn Not Detected (NotDetected) 06/20/21 20:24 Ur Amphetamines Screen Not Detected (NotDetected) 06/20/21 20:24 U Methamphetamines Scrn Not Detected (NotDetected) 06/20/21 20:24 U Benzodiazepines Scrn Not Detected (NotDetected) 06/20/21 20:24 Urine Cocaine Screen Not Detected (NotDetected) 06/20/21 20:24 U Marijuana (THC) Screen Detected (NotDetected) H 06/20/21 20:24 Coronavirus (PCR) Not Detected (Not Detectd) 06/20/21 22:20 06/21/21 13:14 IDENTIFYING DATA: Patient is a , employed, 31-year-old male with significant history of depression presenting to the hospital under petition for suicidal ideation in the context of marital stressors. HPI: Patient presented to the hospital on 06/20/2021, brought in by police on a pickup order. As per petition by the patient's , the patient was reporting suicidal ideation with a plan to shoot himself in the head. Also written the p etition was that the patient verbalized that he hated his children. It is also noted that he has been having an affair. Upon presentation on the psychiatric unit, the patient vehemently denies any suicidal or homicidal ideation, intention, and/or plan. He denies any auditory or visual hallucinations. He reports future orientation, a strong desire to work, and love for his children. He expresses that his primary concern is his relationship with his . He reports that he feels like that they have been drifting apart for quite some time and that he is frustrated with his in-laws who are currently living with them at this time. The patient reports no prior attempts at suicide. The patient was previously open with a counselor at [facility] and a psychiatrist. He reports that the psychiatrist recently relocated to the [facility] and he has an appointment scheduled with the psychiatrist on . He expresses a strong desire to continue with psychiatric treatment. He is agreeable to being evaluated on the psychiatric unit. In regards to depression, the patient is not endorsing any significant symptoms of depression at this time. He reports no suicidal or homicidal ideation, intention, and/or plan. He denies any issues regarding his sleep, appetite, excessive feelings of guilt, anhedonia, hopelessness, or helplessness. The patient vehemently denies any ac cess to firearms or weapons at this time. In regards to bipolar symptoms, the patient denies any periods of excessive energy, increased goal-directed behavior, impulsive behavior, or racing thoughts. He denies any significant symptoms psychosis. He reports no auditory or visual hallucinations. PAST PSYCHIATRIC HISTORY: Patient states that he has a history of depression. He is able to recall being previously prescribed trazodone and Zoloft. His home medication regimen includes Wellbutrin and vraylar but states he did not start the wellbutrin yet. He has had 1 previous psychiatric hospitalization on this mental health unit in December 2018 for suicidal ideation. He reports that he follows with a Beverly Davidson who is open in [place], [place]. Patient denies any history of suicide attempts in the past. PMH: Past Medical History: No Reported History History of Any Multi-Drug Resistant Organisms: None Reported Past Surgical History: No Surgical Hx Reported Past Anesthesia/Blood Transfusion Reactions: No Reported Reaction Past Psychological History: Anxiety, Depression Smoking Status: Never smoker Past Alcohol Use History: Occasional Past Drug Use History: None Reported ALLERGIES: NO KNOWN DRUG ALLERGIES CHEMICAL DEPENDENCY HISTORY:. Patient reports that he uses marijuana at bedtime. He otherwise denies any tobacco, alcohol, or illicit drug use. FAMILY PSYCHIATRIC/SUBSTANCE USE HISTORY: Patient reports that his mother has depression. SOCIAL HISTORY: Patient was born and raised in [place] and has been with his since they were in their teens. He has 2 kids with his . He has a 10-year-old son and a 7-year-old daughter. Also present in the home are his [id number] and [id number]. The patient is currently employed as a [employer]. He graduated trade school. MENTAL STATUS EXAM: General Appearance: Patient appears to be stated age is alert, directable, and attempts to cooperate. Patient appears to have excellent hygiene and grooming. Behavior: Patient is seated without any agitated behavior. Psychomotor activity. Eye contact is appropriate. Speech: Patient's speech is fluent and nonpressured. Mood/Affect: Patient reports their mood is I feel fine." Affect is congruent and euthymic with appropriate range. Suicidality/Homicidality: Patient vehemently denies any suicidal or homicidal ideation, intention, Perceptions: Patient denies any visual hallucinations and denies any auditory hallucinations Though content/process: There is no evidence of any delusional thought content and thought process is linear and goal-directed. Memory and concentration: AOX3, grossly intact for the purposes of this session. Can spell "WORLD" backwards Judgment and insight: Fair Vital Signs Temp 97.3 F L 06/21/21 08:53 Pulse 89 06/21/21 08:53 Resp 12 06/21/21 08:53 BP 144/79 06/21/21 08:53 Pulse Ox 99 06/21/21 08:53 Intake & Output 06/20/21 06/21/21 06/21/21 18:59 06:59 18:59 Weight 81.193 kg 80.031 kg Laboratory Results - Last 24 Hours 06/20/21 06/20/21 06/21/21 20:24 22:20 00:00 Urine Color Light Yellow Urine Appearance Clear Urine pH 6.5 Ur Specific Sunflower 1.004 Urine Protein Negative Urine Glucose (UA) Negative Urine Ketones Negative Urine Blood Negative Urine Nitrite Negative Urine Bilirubin Negative Urine Urobilinogen <2.0 Ur Leukocyte Esterase Negative Urine Opiates Screen Not Detected Ur Oxycodone Screen Not Detected Urine Methadone Screen Not Detected Ur Propoxyphene Screen Not Detected Ur Barbiturates Screen Not Detected U Tricyclic Antidepress Not Detected Ur Phencyclidine Scrn Not Detected Ur Amphetamines Screen Not Detected U Methamphetamines Scrn Not Detected U Benzodiazepines Scrn Not Detected Urine Cocaine Screen Not Detected U Marijuana (THC) Screen Detected H Coronavirus (PCR) Not Detected STRENGTHS/WEAKNESSES: Strength is that the patient is gainfully employed and is in good health. Weakness is marital conflicts. INTELLECT: average IMPRESSIONS: Adjustment disorder Depressive disorder as per history PLAN: -Patient is admitted under voluntary status to MHU for stabilization of psychiatric symptoms and safety. As the patient does not meet criteria for inpatient psychiatric hospitalization, he is subsequently discharged. We will work on appropriate safety planning and confirm safe discharge. The patient is also scheduled for aftercare appointments with her this week. -No medications will be started at this time. -Patient was informed of the risks, benefits and side effects of the medication and patient verbally consented to taking the medications. Patient signed med consent form and was placed in chart. -Internal Medicine consult to perform medical evaluation and physical. -Social work to work on discharge planning. 06/21/21 13:14
--- NOTE | 2021-06-21 13:18 | P.DS ---
Providers Date of admission: 06/21/21 00:22 Expected date of discharge: 06/21/21 Attending physician: Ck Beyer MD Consults: 06/21/21 01:28 Consult Physician Routine Consulting Provider: Nevaeh Grant Consult Reason/Comments: For H & P for Medical Follow Up Do you want consulting provider notified?: Yes Primary care physician: Stated None - Discharge Diagnosis(es) (1) Adjustment disorder Current Visit: Yes Status: Acute Priority: High (2) Cannabis use disorder, mild, abuse Current Visit: Yes Status: Chronic Priority: Medium Hospital Course: Admission HPI: Patient is a , employed, 31-year-old male with significant history of depression presenting to the hospital under petition for suicidal ideation in the context of marital stressors. HPI: Patient presented to the hospital on 06/20/2021, brought in by police on a pickup order. As per petition by the patient's , the patient was reporting suicidal ideation with a plan to shoot himself in the head. Also written the petition was that the patient verbalized that he hated his children. It is also noted that he has been having an affair. Upon presentation on the psychiatric unit, the patient vehemently denies any suicidal or homicidal ideation, intention, and/or plan. He denies any auditory or visual hallucinations. He reports future orientation, a strong desire to work, and love for his children. He expresses that his primary concern is his relationship with his . He reports that he feels like that they have been drifting apart for quite some time and that he is frustrated with his in-laws who are currently living with them at this time. The patient reports no prior attempts at suicide. The patient was previously open with a counselor at [facility] and a psychiatrist. He reports that the psychiatrist recently relocated to the [facility] and he has an appointment scheduled with the psychiatrist on . He expresses a strong desire to continue with psychiatric treatment. He is agreeable to being evaluated on the psychiatric unit. In regards to depression, the patient is not endorsing any significant symptoms of depression at this time. He reports no suicidal or homicidal ideation, intention, and/or plan. He denies any issues regarding his sleep, appetite, excessive feelings of guilt, anhedonia, hopelessness, or helplessness. The patient vehemently denies any access to firearms or weapons at this time. In regards to bipolar symptoms, the patient denies any periods of excessive energy, increased goal-directed behavior, impulsive behavior, or racing thoughts. He denies any significant symptoms psychosis. He reports no auditory or visual hallucinations. Patient states that he has a history of depression. He is able to recall being previously prescribed trazodone and Zoloft. His home medication regimen includes Wellbutrin and vraylar but states he did not start the wellbutrin yet. He has had 1 previous psychiatric hospitalization on this mental health unit in December 2018 for suicidal ideation. He reports that he follows with a Beverly Davidson who is open in [place], [place]. Patient denies any history of suicide attempts in the past. Hospital course: Upon admission to the unit, the patient appeared to be cooperative with excellent hygiene and grooming. Affect appeared euthymic with appropriate range. The patient was cooperative with staff and was agreeable with safety planning. The patient displayed no significant criteria for an inpatient psychiatric hospitalization and was agreeable to sign a release of information for his friend. Safety planning could occur with this patient including confirmation that he has no access to firearms or other weapons. As the patient met no criteria for inpatient psych at Hospital physician, he was subsequently discharged. Patient strongly encouraged to follow-up with his outpatient appointments and to be adherent with his medications. Mental status exam: General Appearance: Patient appears to be stated age is alert, directable, and attempts to cooperate. Patient appears to have excellent hygiene and grooming. Behavior: Patient is seated without any agitated behavior. Psychomotor activity. Eye contact is appropriate. Speech: Patient's speech is fluent and nonpressured. Mood/Affect: Patient reports their mood is I feel fine." Affect is congruent and euthymic with appropriate range. Suicidality/Homicidality: Patient vehemently denies any suicidal or homicidal ideation, intention, Perceptions: Patient denies any visual hallucinations and denies any auditory hallucinations Though content/process: There is no evidence of any delusional thought content and thought process is linear and goal-directed. Memory and concentration: AOX3, grossly intact for the purposes of this session. Can spell "WORLD" backwards Judgment and insight: Fair Vital Signs Temp 97.3 F L 06/21/21 08:53 Pulse 89 06/21/21 08:53 Resp 12 06/21/21 08:53 BP 144/79 06/21/21 08:53 Pulse Ox 99 06/21/21 08:53 Intake & Output 06/20/21 06/21/21 06/21/21 18:59 06:59 18:59 Weight 81.193 kg 80.031 kg Impression: Adjustment disorder Depressive disorder as per history Plan: -Continue with discharge today as patient has improved and stabilized psychiatrically and is not currently an imminent threat to himself and/or others. -Continue medications: No medication changes will be made at this time. The patient is to continue his home medication of Vraylar and wellbutrin. Will defer to his outpatient provider. -Patient was counseled on the need for medication compliance and appropriate follow-up at mental health and also primary care for medical issues. Patient verbalized understanding and agreed. -Social work to arrange for and conduct family meeting to ensure safety upon discharge and answer any questions/concerns. Social work also to arrange for patients follow up appointments with the [facility] for psychiatric care along with follow up with primary care provider. -Patient counseled on abstaining from recreational drugs and marijuana and alcohol. Was informed/educated on the adverse effects on their physical and mental health. Patient verbally agreed and understood. -Patient was instructed to return to the hospital or seek immediate medical care if their psychiatric or medical symptoms do worsen or reoccur. -Psychoeducation and supportive therapy provided to patient. Risks and benefits of pharmacological treatment versus the risks and benefits of nontreatment weight and discussed. Informed consent discussion held. Common side effects of psychotropics discussed such as, but not limited to headache, GI disturbance, sexual dysfunction, movement disorders, sedation, and orthostatic hypotension. Life threatening and blackbox warnings of prescribed medications also discussed. Potential risks of operating a vehicle or heavy machinery discussed with patient at length. Advised on importance of compliance and a reliable and responsible manner. Patient advised to review FDA consumer labeling of all medications prior to taking. Patient verbalized understanding of potential risks, and agrees with current treatment plan. Patient advised to medically contact physician/emergency personnel if any acute changes in condition occur. Allergies Allergy/AdvReac Type Severity Reaction Status Date / Time No Known Allergies Allergy Verified 06/21/21 01:35 Laboratory Results Urine Color Light Yellow 06/21/21 00:00 Urine Appearance Clear (Clear) 06/21/21 00:00 Urine pH 6.5 (5.0-8.0) 06/21/21 00:00 Ur Specific [place] 1.004 (1.001-1.035) 06/21/21 00:00 Urine Protein Negative (Negative) 06/21/21 00:00 Urine Glucose (UA) Negative (Negative) 06/21/21 00:00 Urine Ketones Negative (Negative) 06/21/21 00:00 Urine Blood Negative (Negative) 06/21/21 00:00 Urine Nitrite Negative (Negative) 06/21/21 00:00 Urine Bilirubin Negative (Negative) 06/21/21 00:00 Urine Urobilinogen <2.0 mg/dL (<2.0) 06/21/21 00:00 Ur Leukocyte Esterase Negative (Negative) 06/21/21 00:00 Urine Opiates Screen Not Detected (NotDetected) 06/20/21 20:24 Ur Oxycodone Screen Not Detected (NotDetected) 06/20/21 20:24 Urine Methadone Screen Not Detected (NotDetected) 06/20/21 20:24 Ur Propoxyphene Screen Not Detected (NotDetected) 06/20/21 20:24 Ur Barbiturates Screen Not Detected (NotDetected) 06/20/21 20:24 U Tricyclic Antidepress Not Detected (NotDetected) 06/20/21 20:24 Ur Phencyclidine Scrn Not Detected (NotDetected) 06/20/21 20:24 Ur Amphetamines Screen Not Detected (NotDetected) 06/20/21 20:24 U Methamphetamines Scrn Not Detected (NotDetected) 06/20/21 20:24 U Benzodiazepines Scrn Not Detected (NotDetected) 06/20/21 20:24 Urine Cocaine Screen Not Detected (NotDetected) 06/20/21 20:24 U Marijuana (THC) Screen Detected (NotDetected) H 06/20/21 20:24 Coronavirus (PCR) Not Detected (Not Detectd) 06/20/21 22:20 Patient Condition at Discharge: Stable Plan - Discharge Summary New Discharge Prescriptions: Continue buPROPion HCL [Wellbutrin SR] 100 mg PO DIRECTED Cariprazine HCl [Vraylar] 1.5 mg PO DAILY Discharge Medication List Cariprazine HCl [Vraylar] 1.5 mg PO DAILY 06/20/21 [History] buPROPion HCL [Wellbutrin SR] 100 mg PO DIRECTED 06/20/21 [History] Follow up Appointment(s)/Referral(s): intake,intake [Other] - 06/22/21 10:30 am [facility] [[facility]STA[facility] - 1 Week Patient Instructions/Handouts: Bipolar Disorder (DC), Depression (DC), Help Prevent Suicide (DC), Suicide Prevention (DC) Activity/Diet/Wound Care/Special Instructions: Activity and diet as tolerated. Avoid the use of street drugs and alcohol. Take all medications as prescribed. When you are in need of refills on your medications please contact your medical provider and/or outpatient psychiatrist to have this done. Please go to scheduled outpatient appointment for aftercare treatment. If symptoms return or become worse, call the crisis line at and/or go to the nearest emergency room for evaluation Discharge Disposition: HOME SELF-CARE
== END 2021-06-21 15:04 | disposition home or self-care (01) | DRG 882 ==
LOC: EC 18:19 → 3MHU 06-21 00:22
PROVIDERS: ADMIT Psychiatry & Neurology Psychiatry; ATTEND Psychiatry & Neurology Psychiatry
DX: F43.23 Adjustment disorder with mixed anxiety and depressed mood (principal); R45.851 Suicidal ideations; F12.10 Cannabis abuse, uncomplicated; F31.9 Bipolar disorder, unspecified; Z81.8 Family history of other mental and behavioral disorders; Z63.1 Problems in relationship with in-laws; Z63.0 Problems in relationship with spouse or partner; Z91.14 Patient's other noncompliance with medication regimen; Z71.89 Other specified counseling; Z71.51 Drug abuse counseling and surveillance of drug abuser; Z20.822 Contact with and (suspected) exposure to COVID-19; Z79.899 Other long term (current) drug therapy
CPT/HCPCS: 80306; 81003; 82075; 87635; 99284